=== PATIENT | female | born 1940 | race Caucasian/White ===

== ENCOUNTER → 2017-07-19 16:04 | Outpatient (CLI) | payer MEDICARE, OTHER, SELFPAY ==
--- NOTE | 2017-07-19 16:08 | DI.MRI.S_ITS ---
PROCEDURE: MR LUMBAR SPINE WO CON INDICATIONS: LOW BACK PAIN TECHNIQUE: Noncontrast sagittal T1 spin echo and T2 fast echo, sagittal STIR, axial T1 and T2 fast spin echo through the lumbar spine. In cases with scoliosis, additional coronal T2 fast spin echo may be performed. COMPARISON: [facility] [place], CR, XR LUMBAR SPINE 2 OR 3 VIEWS, 07/11/2017, 11:43. FINDINGS: Image quality: Excellent. Alignment and Curvature: There is grade 1 anterolisthesis of L4 over L5. Bone Marrow: Degenerative endplate signal changes are present. No acute vertebral body compression fractures. Spinal Cord: Conus medullaris terminates at the T12 level. Visualized cord demonstrates normal signal and size. Paraspinous Soft Tissues: No paravertebral masses. Bilateral renal cysts are noted L1-L2: Mild loss disc height. Moderate disc desiccation. There is diffuse posterior disc bulge. Mild bilateral facet arthropathy and hypertrophy of ligamentum flavum. The central canal is patent. Mild bilateral foraminal stenosis. L2-L3: Moderate loss disc height. Moderate disc desiccation. There is diffuse posterior disc bulge. Moderate bilateral facet arthropathy and hypertrophy of ligamentum flavum. The central canal is guha-ca-sietiogzvi. Mild bilateral foraminal stenosis. L3-L4: Jsar-ff-kyrpezkb loss disc height and disc desiccation. There is diffuse posterior disc bulge. Severe bilateral facet arthropathy and hypertrophy of ligamentum flavum. The central canal is jduvmbao-go-mftaeiws narrowed. Moderate left and mild right foraminal stenosis. L4-L5: Njkp-nv-hwuhstwr loss disc height and disc desiccation. There is diffuse posterior disc bulge. Severe bilateral facet arthropathy and hypertrophy of ligamentum flavum. The central canal is moderately narrowed. Moderate right and mild left foraminal stenosis. L5-S1: Ftnu-db-lzbrasrz loss disc height and disc desiccation. There is diffuse posterior disc bulge. Moderate bilateral facet arthropathy. Epidural atelectasis. The central canal is moderately narrowed. Moderate to severe bilateral foraminal stenosis. IMPRESSION: 1. Multilevel degenerative disc disease and facet arthropathy as described. 2 Multilevel central canal stenosis as described, moderate to severe L3-L4 and moderate at L4-L5. 3. Multilevel foraminal stenoses as described, moderate to severe at L5-S1 bilaterally, moderate at L3-L4 on the left and L4-L5 on the right, and mild at several other levels. Dictated by: Jocy Alexander M.D. on 07/19/2017 at 17:11 Transcribed by: MARIO on 07/19/2017 at 17:18 Approved by: Jocy Alexander M.D. on 07/20/2017 at 9:45
== END ==
PROVIDERS: Family Provider Orthopaedic Surgery; PCP Family Medicine; Visit Provider Orthopaedic Surgery Orthopaedic Surgery of the Spine
DX: M51.36 Other intervertebral disc degeneration, lumbar region (principal); M48.061 Spinal stenosis, lumbar region without neurogenic claudication; M99.73 Connective tissue and disc stenosis of intervertebral foramina of lumbar region
CPT/HCPCS: 72148